=== PATIENT | male | born 1930 | race Caucasian/White ===

== ENCOUNTER 2019-09-18 12:20 | Inpatient (IN) | payer MEDICARE, OTHER ==
[~2019-09-18 12:20] MED LIST: Sodium Chloride 0.9% 1,000 ML BAG ONE; Sodium Chloride 0.9% 100 ML BAG ONE; Sodium Chloride 0.9% 500 ML BAG ONE
[2019-09-18] MEDS ORDERED: Acetaminophen 500 MG TAB ONE (12:42)
[2019-09-18] MEDS ORDERED: Cefepime 2 GM VIAL ONE (13:30)
[2019-09-18 13:47] LABS: Hemoglobin 12.9 g/dL (14.0-18.0); Mean Corpuscular Volume 93.6 fL (78.0-98.0); Platelet Count 237 thou/uL (130-400); RBC Distribution Width 12.2 % (11.5-14.5); Red Blood Cell (RBC) Count 4.22 mill/uL (4.70-6.10); White Blood Cell (WBC) Count 21.4 thou/uL (4.8-10.8)
--- NOTE | 2019-09-18 13:53 | RAD ---
Right forearm 2 views HISTORY: Pain and edema. FINDINGS: Radius and ulna are intact. Very mild degenerative changes. 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 No acute fracture, dislocation, or aggressive osseous erosions, or radiopaque foreign bodies reliably demonstrated. IMPRESSION : No acute abnormalities are demonstrated.
[2019-09-18 13:55] LABS: Anisocytosis SLIGHT = 6-15 cells (100X) (0-5/hpf); Band 5 % (5-11); Lymphocytes 7 % (21-51); MDiff Complete? YES; Manual Diff?? YES; Monocytes 2 % (0-10); Neutrophil 86 % (42-75); Platelet Morphology Comment Appears Adequate
[2019-09-18 13:58] LABS: ALT (SGPT) Less than 7 U/L (8-55); AST (SGOT) 7 U/L (5-34); Albumin 3.6 g/dL (3.4-4.8); Alkaline Phosphatase 68 U/L (40-110); Anion Gap 14 mmol/L (10-20); BUN (Urea Nitrogen) 23 mg/dL (8.4-25.7); Bilirubin, Total 1.1 mg/dL (0.2-1.2); Calc. Creatinine Clearance 0 mL/min (70-130); Calcium 9.1 mg/dL (7.8-10.44); Carbon Dioxide 22 mmol/L (23-31); Chloride 107 mmol/L (98-107); Estimated GFR-MDRD 43; Globulin 3.4 g/dL (2.4-3.5); Glucose 114 mg/dL (83-110); Potassium 4.1 mmol/L (3.5-5.1); Sodium 139 mmol/L (136-145)
[2019-09-18 15:42] VITALS: BMI 28.0
[2019-09-18] MEDS ORDERED: Acetaminophen 325 MG TAB PO PRN (16:04)
[2019-09-18] MEDS ORDERED: HYDROcodone/Acetaminophen 5/325 mg Tablet PO PRN ×2 (16:05)
[2019-09-18] MEDS ORDERED: Ondansetron ODT 4 MG TAB PO PRN (16:06)
[2019-09-18] MEDS ORDERED: Sodium Chloride 0.9% 1,000 ML IV SCH ×3 (16:15→21:00)
[2019-09-19] MEDS ORDERED: Cefepime 2 GM in Sodium Chloride 0.9% 100 ML IVPB SCH (02:00)
[2019-09-19 05:53] LABS: #Lymphocytes 1.7 thou/uL (1.20-3.40); #Monocytes 0.6 thou/uL (0.11-0.59); #Neutrophils 16.7 thou/uL (1.40-6.50); %Basophils 0.2 % (0.0-1.0); %Eosinophils 0.1 % (0.0-10.0); %Monocytes 3.3 % (0.0-10.0); %Neutrophils 87.4 % (42.0-75.0); Hemoglobin 11.9 g/dL (14.0-18.0); Mean Corpuscular HGB CONC 31.2 g/dL (32.0-36.0); Mean Corpuscular Hemoglobin 29.4 pg (27.0-31.0); Mean Platelet Volume 6.4 fL (7.4-10.4); Platelet Count 215 thou/uL (130-400); RBC Distribution Width 12.3 % (11.5-14.5); Red Blood Cell (RBC) Count 4.05 mill/uL (4.70-6.10); White Blood Cell (WBC) Count 19.1 thou/uL (4.8-10.8)
--- NOTE | 2019-09-19 06:02 | HP ---
CHIEF COMPLAINT: Swelling, redness, and some discomfort in the right arm. HISTORY OF PRESENT ILLNESS: The patient is an 89-year-old white male, who is a of the [employer]. He lives by himself with his dog. He is independent of all his ADLs and instrumental ADLs and receives his medical care at the [facility] in [place]. The patient said he thinks he has been very healthy. About a week ago , he said he was playing with his dog, who scratched his right arm. The dog is all up on his immunizations. The patient said that he just kept the arm clean, but then a couple of days ago, the arm began to swell and has gotten progressively more swelled and red and a little soreness around the wrist. He also thinks he has had a little low-grade fever. The patient came to the emergency room, where he was evaluated by the emergency room physician. His lab showed a hemoglobin and hematocrit of 12.9 and 41.4 with a white cell count 21,400 with 86% segs, 5% bands, and 7% lymphocytes, his platelet count was 237,000. His sodium 139, potassium 4.1, BUN 23, creatinine 1.5, GFR 43, and glucose 114. Liver panel was normal. Lactic acid was 1.0. X- ray of the right forearm showed no acute abnormalities. There was no evidence of any acute fracture. There were no bony erosions and no air in the tissue. The patient was admitted with a diagnosis of cellulitis of the right arm and started on IV antibiotics with cefepime and vancomycin. The patient was seen soon after his admission. On visiting with the patient, he was able to give a good history of what had occurred. PAST MEDICAL HISTORY: Hypertension. 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 He says he cannot hear out of that left ear. As a result of this, he says he does have some problems with balance. PAST SURGICAL HISTORY: The patient said he has had a colonoscopy, he thinks a number of years ago that was normal. He receives all his health care from the [facility] in [place]. Removal of the left pinna and the external part of the external auditory canal followed by radiation. PRESENT MEDICATIONS: Lisinopril 40 mg 1 tablet daily Amlodipine 10 mg daily Gabapentin 100 mg tid ALLERGIES: NO KNOWN ALLERGIES. REVIEW OF SYSTEMS: GENERAL: The patient said he has been running a little fever today. The patient has had no recent weight gain or loss. HEAD AND NECK: Could not hear out of the left ear. There has been no drainage or ulcerations, where the ear was removed. Visual, no complaints. CARDIOVASCULAR: No chest pain. RESPIRATORY: No shortness of breath. GI: No nausea or vomiting. Has had a good appetite. He has had no change in his bowel habits. : No complaints. ADLs, independent of all his ADLs and instrumental ADLs. HABITS: Alcohol, none. Tobacco, none. SOCIAL HISTORY: The patient lives alone. Has a dog. Has no close family. PHYSICAL EXAMINATION: GENERAL: Shows a very pleasant 89-year-old white male, who is alert, talkative , and appears in no acute distress. VITAL SIGNS: His vital signs show a temperature of 98.1, pulse 74, respirations 16, O2 saturation 95% on room air, and blood pressure 144/69. In the emergency room , the patient had a temperature of 100.2. His weight is 201. HEENT: Head; normocephalic. Ears; right TM clear. Left ear, the pinna has been removed and it looks like the distal portion of the external auditory canal. There was just a depression where the canal was that is closed. There is no drainage or ulceration. Eyes; pupils are equal, round, and reactive with intraocular lens implants. Nose; normal. Mouth and throat, the patient is edentulous. He is wearing an upper plate, but does not have on his lower plate. NECK: Carotids are equal and strong. No bruits. Thyroid, not enlarged. LUNGS: Clear. HEART: Regular rate. No murmurs. ABDOMEN: Soft. No organomegaly. No areas of tenderness. EXTREMITIES: Right arm, there is moderate edema extending from the distal third of the upper arm down to the hand. There is redness particularly over the volar aspect of the arm and there is increased heat. Radial pulse is 2+. The skin is warm. There is no area of fluctuance. Left arm appears normal. Lower extremities; no edema. Dorsalis pedis are 2+ in the feet. SKIN: The patient has actinic skin changes to his face and to his dorsal forearms. NEUROLOGIC: The patient alert and oriented to person, place, and situation. He has no focal weakness other than a little decreased movement in the right arm due to the swelling. IMPRESSION: 1. Cellulitis of the right arm. 2. Hypertension. 3. Status post excision of the left pinna and distal portion of the external auditory canal leaving a depression in that area in 2017 followed by radiation therapy. a. 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 PLAN: The patient has been admitted to the hospital for treatment of the cellulitis. He has been started on cefepime and vancomycin. The arm will be kept elevated. We will use a Gaymar pump to provide some moist heat. Recheck CBC in the morning. We will have pharmacy follow the vanc levels. We will place the patient on Lovenox for DVT prophylaxis. Up ad vidal. [facility] . Med list is correct. Full code. Job ID: [id number] MTDD
[2019-09-19 06:12] LABS: Anion Gap 13 mmol/L (10-20); BUN (Urea Nitrogen) 23 mg/dL (8.4-25.7); Calc. Creatinine Clearance 48 mL/min (70-130); Calcium 8.1 mg/dL (7.8-10.44); Carbon Dioxide 20 mmol/L (23-31); Chloride 111 mmol/L (98-107); Estimated GFR-MDRD 49; Glucose 102 mg/dL (83-110); Potassium 3.7 mmol/L (3.5-5.1); Sodium 140 mmol/L (136-145)
[2019-09-19] MEDS: Amlodipine 5 MG TAB PO SCH (08:43)
[2019-09-19] MEDS: Enoxaparin Sodium 40 MG/0.4 ML SYRINGE SC SCH (08:43)
[2019-09-19] MEDS: Lisinopril 10 MG TAB PO SCH (08:44)
[2019-09-19] MEDS ORDERED: FLU VACC TS2019-20(65YR UP)/PF 180 MCG/0.5 ML SYRINGE IM ONE (09:00)
--- NOTE | 2019-09-19 11:01 | PRG ---
DATE OF SERVICE: 09/19/2019 SUBJECTIVE: The patient said he did good last night. He is feeling better this morning. He says his arm is still swelled, but he thinks the swelling in the fingers is less. He thinks swelling is a little higher in the upper part of the arm. He is not running any fever this morning. The nurses were able to contact the [facility] [place] and they have reviewed his record and said that he is on the lisinopril 40 mg daily, amlodipine 10 mg daily, and gabapentin 100 mg t.i.d. OBJECTIVE: GENERAL: The patient is alert, talkative, appears in no distress. VITAL SIGNS: Show a temperature of 97.9, pulse 77, respirations 20, O2 saturation 96% on room air, blood pressure 149/72. LUNGS: Clear. HEART: Regular rate. EXTREMITIES: Right arm, the edema is less in the hand and the distal forearm, but still there is moderate edema present and it is extending up into the mid upper arm probably from the elevation of the arm. The redness is much less. The warmth is also much less. Overall, the arm looks a little better. LABORATORY DATA: His H and H are 11.9 and 38.0, white cell count down to 19,100, with 87% segs, 9% lymphocytes, and a platelet count of 215. Sodium 140, potassium 3.7, BUN 23, creatinine 1.37, GFR 49, glucose 102. TSH 1.06. ASSESSMENT: 1. Cellulitis of the right arm. a. Improved as of 09/19/2019. 2. Hypertension. a. Controlled. PLAN: Continue present care. Continue present IV antibiotics. We will have PT evaluate the patient and OT. We will stop the IV fluids. Job ID: [id number]
[2019-09-19] MEDS: Cefepime 2 GM in Sodium Chloride 0.9% 100 ML IVPB SCH (13:33)
[2019-09-19] MEDS: Vancomycin 1.5 GRAM/300 ML BAG 1.5 GM in Premix Bag 1 BAG IVPB SCH (13:34)
[2019-09-20 05:32] LABS: #Eosinphils 0.1 thou/uL (0.0-0.7); #Lymphocytes 1.9 thou/uL (1.20-3.40); #Monocytes 0.6 thou/uL (0.11-0.59); #Neutrophils 12.8 thou/uL (1.40-6.50); %Basophils 0.3 % (0.0-1.0); %Eosinophils 0.4 % (0.0-10.0); %Monocytes 3.9 % (0.0-10.0); %Neutrophils 83.3 % (42.0-75.0); Hemoglobin 11.9 g/dL (14.0-18.0); Mean Corpuscular HGB CONC 31.5 g/dL (32.0-36.0); Mean Corpuscular Hemoglobin 29.6 pg (27.0-31.0); Mean Corpuscular Volume 93.9 fL (78.0-98.0); Mean Platelet Volume 7.1 fL (7.4-10.4); Platelet Count 227 thou/uL (130-400); RBC Distribution Width 12.2 % (11.5-14.5); Red Blood Cell (RBC) Count 4.03 mill/uL (4.70-6.10); White Blood Cell (WBC) Count 15.3 thou/uL (4.8-10.8)
[2019-09-20 05:44] LABS: Anion Gap 14 mmol/L (10-20); BUN (Urea Nitrogen) 25 mg/dL (8.4-25.7); Calc. Creatinine Clearance 51 mL/min (70-130); Calcium 8.4 mg/dL (7.8-10.44); Carbon Dioxide 19 mmol/L (23-31); Chloride 111 mmol/L (98-107); Estimated GFR-MDRD 53; Glucose 100 mg/dL (83-110); Potassium 3.7 mmol/L (3.5-5.1); Sodium 140 mmol/L (136-145)
[2019-09-20] MEDS: Enoxaparin Sodium 40 MG/0.4 ML SYRINGE SC SCH (08:46)
[2019-09-20] MEDS: Lisinopril 10 MG TAB PO SCH (08:46)
[2019-09-20] MEDS: Amlodipine 5 MG TAB PO SCH (08:46)
--- NOTE | 2019-09-20 10:34 | PRG ---
DATE OF SERVICE: 09/20/2019 SUBJECTIVE: The patient is feeling better. He said his right arm is feeling better. Physical Therapy and Occupational Therapy are working with him. OBJECTIVE: GENERAL: The patient is sitting up in a bedside chair, working with occupational therapy. He is alert, talkative, and appears in no distress. VITAL SIGNS: Temperature is 96.2, pulse 69, respirations are 18, O2 saturation 98% on room air, blood pressure 146/70. LUNGS: Clear. HEART: Regular rate. EXTREMITIES: Right arm is still moderately edematous, but the edema in the hand is less. The edema extends up to the mid upper arm, but this is less, the redness has resolved. The pinkness is almost all resolved. There is no increased heat. Overall, the arm looks better. LABORATORY DATA: His H and H are 11.9 and 37.9, white cell count down to 15,300 with 83% segs, 12% lymphocytes, and a platelet count of 227. Sodium 140, potassium 3.7, BUN 25, creatinine 1.29, GFR up to 53. Blood cultures have no growth x2. ASSESSMENT: 1. Cellulitis of the right arm. a. Improved. Remains afebrile and white cell count down to 15,000 as of 09/19. 2. Hypertension. a. Controlled. PLAN: Continue present care. Continue IV antibiotics. Continue PT and OT. Job ID: [id number]
[2019-09-20] MEDS: Cefepime 2 GM in Sodium Chloride 0.9% 100 ML IVPB SCH (14:15)
[2019-09-20] MEDS: Vancomycin 1.5 GRAM/300 ML BAG 1.5 GM in Premix Bag 1 BAG IVPB SCH (14:16)
[2019-09-21] MEDS: Enoxaparin Sodium 40 MG/0.4 ML SYRINGE SC SCH (08:19)
[2019-09-21] MEDS: Amlodipine 5 MG TAB PO SCH (08:19)
[2019-09-21] MEDS: Lisinopril 10 MG TAB PO SCH (08:19)
[2019-09-21] MEDS: Cefepime 2 GM in Sodium Chloride 0.9% 100 ML IVPB SCH (13:27)
[2019-09-21] MEDS: Vancomycin 1.5 GRAM/300 ML BAG 1.5 GM in Premix Bag 1 BAG IVPB SCH (14:27)
--- NOTE | 2019-09-22 07:11 | PRG ---
DATE OF SERVICE: 09/21/2019 SUBJECTIVE: The patient said he is feeling good. He still has just a little soreness in the arm. He has been up and walking around and had no complaint. OBJECTIVE: GENERAL: The patient is alert, very talkative and appears in no distress. VITAL SIGNS: His vital signs show a temperature of 97.7, pulse 69, respirations 16, O2 saturation 97% on room air, and blood pressure 145/62. LUNGS: Clear. HEART: Regular rate. EXTREMITIES: Right arm looks better. There is just a little pinkness to the arm. The edema in the hand is much less, although not totally resolved. At the area of the wrist, the edema is less. The proximal forearm has still moderate amount of edema and also some in the upper arm, but it is a little bit less to. Overall, the arm looks better. LABORATORY DATA: Blood cultures at 48 hours, no growth x2. ASSESSMENT: 1. Cellulitis of the right arm. a. Continual gradual improvement, remains afebrile. b. Blood cultures negative x2 at 48 hours. 2. Hypertension. a. Controlled. PLAN: Continue present care. Continue the IV antibiotics. Up ad vidal. Job ID: [id number]
[2019-09-22] MEDS: Lisinopril 10 MG TAB PO SCH (08:07)
[2019-09-22] MEDS: Amlodipine 5 MG TAB PO SCH (08:07)
[2019-09-22] MEDS: Enoxaparin Sodium 40 MG/0.4 ML SYRINGE SC SCH (08:07)
[2019-09-22 08:26] LABS: #Basophils 0.1 thou/uL (0.0-0.2); #Eosinphils 0.1 thou/uL (0.0-0.7); #Monocytes 0.6 thou/uL (0.11-0.59); #Neutrophils 7.2 thou/uL (1.40-6.50); %Basophils 0.6 % (0.0-1.0); %Lymphocytes 20.4 % (21.0-51.0); %Monocytes 5.6 % (0.0-10.0); %Neutrophils 72.4 % (42.0-75.0); Hemoglobin 13.5 g/dL (14.0-18.0); Mean Corpuscular HGB CONC 31.5 g/dL (32.0-36.0); Mean Corpuscular Hemoglobin 29.4 pg (27.0-31.0); Mean Corpuscular Volume 93.4 fL (78.0-98.0); Mean Platelet Volume 6.6 fL (7.4-10.4); Platelet Count 281 thou/uL (130-400); RBC Distribution Width 12.3 % (11.5-14.5); Red Blood Cell (RBC) Count 4.59 mill/uL (4.70-6.10)
[2019-09-22 08:36] LABS: Anion Gap 15 mmol/L (10-20); BUN (Urea Nitrogen) 21 mg/dL (8.4-25.7); Calc. Creatinine Clearance 56 mL/min (70-130); Carbon Dioxide 21 mmol/L (23-31); Chloride 108 mmol/L (98-107); Estimated GFR-MDRD 59; Glucose 100 mg/dL (83-110); Sodium 140 mmol/L (136-145)
[2019-09-22] MEDS: Cefepime 2 GM in Sodium Chloride 0.9% 100 ML IVPB SCH (14:15)
[2019-09-22] MEDS: Vancomycin 1.5 GRAM/300 ML BAG 1.5 GM in Premix Bag 1 BAG IVPB SCH (15:27)
--- NOTE | 2019-09-22 17:25 | PRG ---
DATE OF SERVICE: 09/22/2019 SUBJECTIVE: The patient says he feels a lot better. He says the swelling in his arm has continued to go down. He says his arm is not hurting. He can push up off the arms of his chair when he stands without any pain with that right arm now. OBJECTIVE: GENERAL: The patient is sitting up in a chair, alert, talkative, appears very comfortable, and in no distress. VITAL SIGNS: His temperature is 97.5, pulse 74, respirations 16, O2 saturation 99% on room air, blood pressure 142/65. LUNGS: Clear. HEART: Regular rate. EXTREMITIES: His right arm looks much better. There is no redness nor pinkness nor increased warmth. The edema in the arm is continuing to diminish, arm is much smaller than admission. The edema in the fingers and hand is improved, still a little swelling in the upper arm, but overall much better. LABORATORY DATA: His lab shows an H and H of 13.5 and 42.9, white cell count 10,000, with 72% segs, 20% lymphocytes, and platelet count of 281. Sodium 140, potassium 4, BUN 21, creatinine 1.17, GFR 59. Vancomycin trough level on the was 13. ASSESSMENT: 1. Cellulitis of the right arm. a. Blood cultures negative x2. b. Continued improvement with no fever and decrease in the edema of the arm. 2. Hypertension. a. Controlled. PLAN: Continue the IV antibiotics for another day. The way he is improving, suspect that he should be able to be discharged by tomorrow. Job ID: [id number]
[2019-09-22] MEDS: Cephalexin 500 MG CAP PO SCH (21:02)
[2019-09-23] MEDS: Enoxaparin Sodium 40 MG/0.4 ML SYRINGE SC SCH (08:35)
[2019-09-23] MEDS: Amlodipine 5 MG TAB PO SCH (08:36)
[2019-09-23] MEDS: Cephalexin 500 MG CAP PO SCH (08:36)
[2019-09-23] MEDS: Lisinopril 10 MG TAB PO SCH (08:36)
[2019-09-23] MEDS ORDERED: Cephalexin 500 MG CAP PO SCH (09:00)
[2019-09-23 09:37] VITALS: BP 136/79; TEMP 97.2
--- NOTE | 2019-09-23 12:07 | DIS ---
DATE OF ADMISSION: 09/18/2019 DATE OF DISCHARGE: 09/23/2019 FINAL DIAGNOSES: 1. Cellulitis of the right arm. a. Blood cultures negative x2. b. Continued improvement with no fever and arm continuing to decrease in size as of 09/22. 2. Hypertension. a. Controlled. REASON FOR ADMISSION: The patient is an 89-year-old white male, who lives alone with his dog. He is independent of all his ADLs and instrumental ADLs. 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 He also had radiation of this area. This was done 2 years ago, and he has had no problems since then. The patient said that he came to the emergency room on the day of admission because of marked swelling in the right arm, redness, discomfort, and fever. The patient said that his dog had scratched him on the right arm. He kept it clean, but then within a couple of days, he developed the swelling that had increased and the redness and the discomfort. His dog is all up-to-date on his immunizations. The patient was initially evaluated in the emergency room, and white blood cell count was 21,400 with 86% segs. X-ray of the right arm just showed soft tissue swelling, but no evidence to suggest osteomyelitis. The patient had a low-grade fever. His right arm was markedly elevated with no evidence of any abscess formation or purulent drainage. The arm was red and hot to the touch. The ER physician had diagnosed him with cellulitis and recommended that he be admitted for IV antibiotics. HOSPITAL COURSE: The patient was admitted to the hospital with a diagnosis of cellulitis of the right arm. Blood cultures were drawn, and then, the patient was started on cefepime and vancomycin. The patient had no more fever throughout the hospitalization. The patient was continued on his antihypertensives. The right arm was kept elevated. A Gaymar pump was used for moist heat to the arm. He was given Tylenol for pain and then, had hydrocodone 5/325 to use, that did not work. Over the next few days, the patient showed continual gradual improvement. The redness faded to a pinkness and then the pinkness resolved. The swelling markedly diminished, where he could now use his hand and bend his wrist. The swelling extended up into the proximal half of the upper arm, but all of this was decreasing. His blood cultures came back with no growth. His white blood cell count dropped from an admission of 21,400 to 10,000 on 09/21, and hemoglobin then was 13.5 and 42.9. The cellulitis was resolving. His IV infiltrated on the afternoon of , and he was switched to oral antibiotic use and cephalexin. On the morning of , he was doing fine. The arm had not been hurting. Any pain had been managed with just Tylenol. He was using his hand good. He was using the wrist good, and he said the arm was not hurting. The arm was still larger than the left arm, but there was no induration, no redness, no increased heat. Anticipated continual resolution of the edema. During his hospitalization, he was placed on Lovenox for DVT prophylaxis. As condition improved, such that it felt that he could now be managed at home. DISPOSITION: DIET: Regular diet. No added salt. ACTIVITIES: Gradually resume his usual activities. Encouraged him to keep the right arm elevated and do gentle range of motion exercise of the hand, wrist, elbow, and shoulder. MEDICATIONS: 1. Cephalexin 500 mg q.i.d. for 10 days. 2. Amlodipine 10 mg daily. 3. Lisinopril 40 mg daily. 4. Gabapentin 100 mg t.i.d. 5. Tylenol 325 mg two every 4 hours as needed for pain. FOLLOWUP: The patient will need to be checked on by myself in 2 weeks. This can be done as a telephone visit, if the coronavirus pandemic is still limiting visits. CODE STATUS: Full code. Job ID: [id number] MTDD
== END 2019-09-23 10:00 | disposition home or self-care (01) | DRG 603 ==
LOC: MADERS 12:20 → MADMS 15:12
PROVIDERS: ADMIT Family Medicine; ATTEND Family Medicine
DX: L03.113 Cellulitis of right upper limb (principal); I10 Essential (primary) hypertension; Z85.22 Personal history of malignant neoplasm of nasal cavities, middle ear, and accessory sinuses
CPT/HCPCS: 36415; 80048; 80053; 80202; 83605; 84443; 85025; 87040; 96365; 96367; J0692; J1650; J3370; J3490; J7050